=== PATIENT | female | born 1965 | race Caucasian/White ===

== ENCOUNTER 2016-10-15 19:47 | Emergency (ER) | payer BC ==
[2016-10-15 19:53] VITALS: BP 160/88; PULSE 80; TEMP 98.5; BMI 31.1
--- NOTE | 2016-10-15 20:25 | PDOC ---
History of Present Illness - General History Source: Patient Exam Limitations: No Limitations <Luzmaria Cleveland - Last Filed: 10/15/16 20:39> <Cristina Combs - Last Filed: 10/16/16 01:09> - General Chief Complaint: Chest Pain Stated Complaint: CHEST PAIN Time Seen by Provider: 10/15/16 20:21 - History of Present Illness Initial Comments: 10/15/16 20:39 Patient is a 50 year old female with a significant past medical history of hyperlipidemia who presents to the ED with chest pressure pain for 3 days. Patient states that the pain is a pressure pain and feels like someone standing on her chest and today it was radiating to the left chest. LMP was last week. PSH - right knee torn meniscus, right wrist fracture Allergy - NKA SH - smoker 1 pack for 25 years PCP - Dr. Pankaj Marr by [facility] (Luzmaria Cleveland) Past History <Luzmaria Cleveland - Last Filed: 10/15/16 20:39> - Psycho/Social/Smoking Cessation Hx Suicidal Ideation: No Smoking Status: Yes Smoking History: Current every day smoker Number of Cigarettes Smoked Daily: 15 Information on smoking cessation initiated: No <Cristina Combs - Last Filed: 10/16/16 01:09> - Past Medical History Allergies/Adverse Reactions: Allergies Allergy/AdvReac Type Severity Reaction Status Date / Time No Known Allergies Allergy Verified 10/15/16 19:51 Review of Systems - Review of Systems Able to Perform ROS?: Yes <Luzmaria Cleveland - Last Filed: 10/15/16 20:39> <Cristina Combs - Last Filed: 10/16/16 01:09> - Review of Systems Comments:: 10/15/16 20:40 CONSTITUTIONAL: Absent: fever, chills, diaphoresis, generalized weakness, malaise, loss of appetite HEENT: Absent: rhinorrhea, nasal congestion, throat pain, throat swelling, difficulty swallowing, mouth swelling, ear pain, eye pain, visual Changes CARDIOVASCULAR: Present: chest pain Absent: syncope, palpitations, irregular heart rate, lightheadedness, peripheral edema RESPIRATORY: Absent: cough, shortness of breath, dyspnea with exertion, orthopnea, wheezing, stridor, hemoptysis GASTROINTESTINAL: Absent: abdominal pain, abdominal distension, nausea, vomiting, diarrhea, constipation, melena, hematochezia GENITOURINARY: Absent: dysuria, frequency, urgency, hesitancy, hematuria, flank pain, genital pain MUSCULOSKELETAL: Absent: myalgia, arthralgia, joint swelling SKIN: Absent: rash, itching, pallor HEMATOLOGIC/IMMUNOLOGIC: Absent: easy bleeding, easy bruising, lymphadenopathy, frequent infections ENDOCRINE: Absent: unexplained weight gain, unexplained weight loss, heat intolerance, cold intolerance NEUROLOGIC: Absent: headache, focal weakness or paresthesias, dizziness, unsteady gait, seizure, mental status changes, bladder or bowel incontinence PSYCHIATRIC: Absent: anxiety, depression, suicidal or homicidal ideation, hallucinations. (Luzmaria Cleveland) *Physical Exam <Luzmaria Cleveland - Last Filed: 10/15/16 20:39> <Cristina Combs - Last Filed: 10/16/16 01:09> - Vital Signs Last Vital Signs Temp Pulse Resp BP Pulse Ox 98.5 F 80 18 160/88 98 10/15/16 19:51 10/15/16 19:51 10/15/16 19:51 10/15/16 19:51 10/15/16 19:51 - Physical Exam Comments: 10/15/16 20:40 GENERAL: Well developed, well nourished. Awake and alert. No acute distress. HEENT: Normocephalic, atraumatic. PERRLA, EOMI. No conjunctival pallor. Sclera are non- icteric. Moist mucous membranes. Oropharynx is clear. NECK: Supple. Full ROM. No JVD. Carotid pulses 2+ and symmetric, without bruits. No thyromegaly. No lymphadenopathy. CARDIOVASCULAR: Regular rate and rhythm. No murmurs, rubs, or gallops. Distal pulses are 2+ and symmetric. PULMONARY: No evidence of respiratory distress. Lungs clear to auscultation bilaterally. No wheezing, rales or rhonchi. ABDOMINAL: Soft. Non-tender. Non-distended. No rebound or guarding. No organomegaly. Normoactive bowel sounds. MUSCULOSKELETAL Normal range of motion at all joints. No bony deformities or tenderness. No CVA tenderness. EXTREMITIES: No cyanosis. No clubbing. No edema. No calf tenderness. SKIN: (+)large left elbow hematoma. Warm and dry. Normal capillary refill. No rashes. No jaundice. NEUROLOGICAL: Alert, awake, appropriate. Cranial nerves 2-12 intact. No deficits to light touch and temperature in face, upper extremities and lower extremities. No motor deficits in the in face, upper extremities and lower extremities. Normoreflexic in the upper and lower extremities. Normal speech. Toes are down-going bilaterally. Gait is normal without ataxia. PSYCHIATRIC: Cooperative. Good eye contact. Appropriate mood and affect. (Luzmaria Cleveland) ED Treatment Course - LABORATORY CBC & Chemistry Diagram: 10/15/16 20:57 10/15/16 20:57 <Cristina Combs - Last Filed: 10/16/16 01:09> - ADDITIONAL ORDERS Additional order review: Laboratory Results 10/15/16 10/15/16 10/15/16 23:58 21:00 20:59 INR Sodium Potassium Chloride Carbon Dioxide Anion Gap BUN Creatinine Creat Clearance w eGFR Random Glucose Calcium Magnesium Total Bilirubin AST ALT Alkaline Phosphatase Creatine Kinase 80 Troponin I < 0.02 B-Natriuretic Peptide Total Protein Albumin Serum , Qual Negative Urine Color Straw Urine Appearance Clear Urine pH 7.0 Urine Protein Negative Urine Glucose (UA) Negative Urine Ketones Negative Urine Blood Negative Urine Nitrite Negative Urine Bilirubin Negative Urine Urobilinogen Negative Ur Leukocyte Esterase 1+ H Urine RBC 2 Urine WBC 3 Ur Epithelial Cells Few Urine Mucus Rare 10/15/16 10/15/16 20:57 20:57 INR 1.04 Sodium 140 Potassium 4.3 Chloride 106 Carbon Dioxide 27 Anion Gap 7 L BUN 15 Creatinine 0.7 Creat Clearance w eGFR > 60 Random Glucose 83 Calcium 9.4 Magnesium 2.2 Total Bilirubin 0.3 AST 19 ALT 34 Alkaline Phosphatase 77 Creatine Kinase 95 Troponin I < 0.02 B-Natriuretic Peptide 62.29 Total Protein 7.7 Albumin 4.2 Serum , Qual Urine Color Urine Appearance Urine pH Urine Protein Urine Glucose (UA) Urine Ketones Urine Blood Urine Nitrite Urine Bilirubin Urine Urobilinogen Ur Leukocyte Esterase Urine RBC Urine WBC Ur Epithelial Cells Urine Mucus 10/15/16 20:57 RBC 4.98 MCV 89.9 MCHC 33.3 RDW 13.5 MPV 8.4 Neutrophils % 51.9 Lymphocytes % 34.9 Monocytes % 7.6 Eosinophils % 4.4 Basophils % 1.2 - RADIOLOGY Radiology Studies Ordered: Category Date Time Status CHEST PA & LAT [RAD] Stat Radiology 10/15/16 21:44 Taken - Medications Given in the ED: ED Medications Discontinued Medications Generic Name Dose Route Start Last Admin Trade Name Pawan PRN Reason Stop Dose Admin Aspirin 162 mg 10/15/16 20:33 10/15/16 21:11 Asa - PO 10/15/16 20:34 162 mg ONCE ONE Administration Medical Decision Making <Luzmaria Cleveland - Last Filed: 10/15/16 20:39> <Cristina Combs - Last Filed: 10/16/16 01:09> - Medical Decision Making 10/16/16 00:49 50-year-old female presents with chest pain for 3 days. She came today because she said it is starting to move to her left chest -she denies any radiation to the jaw or arm or back. She denies any shortness of breath, she has not had any diaphoresis or nausea or vomiting PMH hyperlipiedemia. LMP last week 10/16/16 01:08 Patient had 2 sets of negative cardiac enzymes EKG was normal sinus rhythm at 79 bpm with moderate voltage criteria for LVH Chest x-ray was negative for any acute pulmonary disease Urinalysis was negative CBC was unremarkable Chemistries were within normal limits She did present with some elevated high blood pressure and the plan is to discharge her home to follow up with her primary care physician (Cristina Combs) *DC/Admit/Observation/Transfer <Luzmaria Cleveland - Last Filed: 10/15/16 20:39> <Cristina Combs - Last Filed: 10/16/16 01:09> Diagnosis at time of Disposition: Chest pain Qualifiers: Chest pain type: unspecified Qualified Code(s): R07.9 - Chest pain, unspecified Hypertension Qualifiers: Hypertension type: essential hypertension Qualified Code(s): I10 - Essential ( primary) hypertension - Discharge Dispostion Disposition: HOME Condition at time of disposition: Stable - Referrals Referrals: STAFF,NOT ON [Primary Care Provider] - - Patient Instructions Printed Discharge Instructions: DI for Chest Pain Additional Instructions: Please follow up with your doctor this week for further evaluation Your blood pressure was elevated and this should be addressed by your regular physician - Attestations Scribe Attestion: 10/15/16 20:41 Documentation prepared by STEFFEN Juarez, acting as medical insurance verifier for Cirstina Combs MD. (Cristofer,Luzmaria)
[2016-10-15] MEDS ORDERED: ASPIRIN 81 MG CHEWABLE TABLETS PO ONE (20:33)
[2016-10-15 21:03] LABS: BASOPHIL 1.2 % (0-2.0); EOSINOPHIL 4.4 % (0-4.5); MCH 29.9 pg (25.7-33.7); MCHC 33.3 g/dl (32.0-36.0); MEAN CELL VOLUME 89.9 fl (80-96); MEAN PLT VOLUME 8.4 fl (7.5-11.1); NEUTROPHILS 51.9 % (42.8-82.8); PLATELET COUNT 334 K/MM3 (134-434); RDW 13.5 % (11.6-15.6); WHITE BLOOD COUNT 9.8 K/mm3 (4.0-10.0)
[2016-10-15 21:08] LABS: URINE APPEARANCE CLEAR; URINE BILIRUBIN NEGATIVE (NEGATIVE); URINE BLOOD NEGATIVE (NEGATIVE); URINE COLOR STRAW; URINE GLUCOSE (UA) NEGATIVE (NEGATIVE); URINE KETONE NEGATIVE (NEGATIVE); URINE NITRITE NEGATIVE (NEGATIVE); URINE PROTEIN NEGATIVE (NEGATIVE); URINE UROBILINOGEN NEGATIVE E.U./dl (0.2-1.0)
[2016-10-15] MEDS ORDERED: ASPIRIN 81 MG CHEWABLE TABLETS ONE (21:13)
[2016-10-15 21:14] LABS: INR 1.04 (0.82-1.09); PROTHROMBIN TIME (PATIENT) 11.4 SEC (9.98-11.88)
[2016-10-15 21:22] LABS: URINE LEUK ESTERASE 1+ (NEGATIVE)
[2016-10-15 21:27] LABS: ALBUMIN 4.2 g/dl (3.4-5.0); ANION GAP 7 (8-16); BILIRUBIN,TOTAL 0.3 mg/dL (0.2-1.0); CALCIUM 9.4 mg/dL (8.5-10.1); CO2 27 mmol/L (21-32); CREATININE 0.7 mg/dL (0.55-1.02); GLUCOSE,RANDOM 83 mg/dL (74-106); MAGNESIUM 2.2 mg/dL (1.8-2.4); SGOT/AST 19 U/L (15-37); SGPT/ALT 34 U/L (12-78); TOT PROT 7.7 g/dl (6.4-8.2)
[2016-10-15 21:30] LABS: URINE MUCUS RARE; URINE RBC 2 /hpf (0-3); URINE WBC 3 /hpf (3-5)
[2016-10-15 21:30] LABS: ALK PHOS 77 U/L (45-117); TROPONIN I < 0.02 ng/ml (0.00-0.05)
[2016-10-16 00:46] LABS: TROPONIN I < 0.02 ng/ml (0.00-0.05)
--- NOTE | 2016-10-16 13:37 | EKG ---
Test Reason : Blood Pressure : / mmHG Vent. Rate : 079 BPM Atrial Rate : 079 BPM P-R Int : 140 ms QRS Dur : 088 ms QT Int : 384 ms P-R-T Axes : 048 -32 017 degrees QTc Int : 440 ms NORMAL SINUS RHYTHM LEFT AXIS DEVIATION MODERATE VOLTAGE CRITERIA FOR LVH, MAY BE NORMAL VARIANT CANNOT RULE OUT SEPTAL INFARCT , AGE UNDETERMINED ABNORMAL ECG WHEN COMPARED WITH ECG OF 10-MAY-1999 19:40, MINIMAL CRITERIA FOR SEPTAL INFARCT ARE NOW PRESENT Confirmed by ZBIGNIEW OCASIO MD ([id number]) on 10/16/2016 1:37:21 PM Referred By: Confirmed By:ZBIGNIEW OCASIO MD
== END 2016-10-16 01:25 | disposition home or self-care (01) ==
LOC: JER 19:47
DX: R07.89 Other chest pain (principal); I10 Essential (primary) hypertension; E78.5 Hyperlipidemia, unspecified
CPT/HCPCS: 36415; 71020-TC; 80053; 81003; 81015; 82550; 83735; 83880; 84484; 84703; 85025; 85610; 93005; 93010; 99283-25